=== PATIENT | male | born 1985 | race African-American/Black ===

== ENCOUNTER 2019-03-01 10:22 | Emergency (ER) | payer OTHER ==
[~2019-03-01] VITALS: Ht 185.4 cm; Wt 95.2 kg
[~2019-03-01 10:22] MED LIST: Crutch1 EACH MISC; Norco 5-325 Ta1 EACH PO
== END 2019-03-01 11:28 | disposition home or self-care (01) ==
LOC: ER 10:22
DX: R04.0 Epistaxis (principal)
CPT/HCPCS: 99283

== ENCOUNTER 2019-03-01 17:54 | Emergency (ER) | payer SELFPAY ==
[~2019-03-01] VITALS: Ht 185.4 cm; Wt 90.7 kg
== END 2019-03-01 18:21 | disposition left against medical advice (07) ==
LOC: ER 17:54
DX: Z53.21 Procedure and treatment not carried out due to patient leaving prior to being seen by health care provider (principal)

== ENCOUNTER 2020-05-15 00:16 | Emergency (ER) | payer OTHER ==
[~2020-05-15] VITALS: Ht 185.4 cm; Wt 95.2 kg
== END 2020-05-15 01:12 | disposition home or self-care (01) ==
LOC: ER 00:16
DX: S61.412A Laceration without foreign body of left hand, initial encounter (principal); F17.220 Nicotine dependence, chewing tobacco, uncomplicated; W45.8XXA Other foreign body or object entering through skin, initial encounter
CPT/HCPCS: 12001; 99282

== ENCOUNTER 2024-07-23 09:07 | Emergency (ER) | payer OTHER ==
[~2024-07-23] VITALS: Ht 185.4 cm; Wt 90.7 kg
[2024-07-23 10:07] VITALS: BP 149/78
[2024-07-23 11:27] LABS: Source, Urine Clean Catch
[2024-07-23 11:37] LABS: Bilirubin, Urine Neg (Neg); Blood, Urine 4+ (Neg); Glucose Qualitative, Urine Neg (Neg); Ketones, Urine Neg (Neg); Leukocyte Esterase, Urine 3+ (Neg); Nitrite, Urine Pos (Neg); Protein, Urine 2+ (Neg); Urobilinogen, Urine NORM (Normal); pH, Urine 6.5 (5.0-8.0)
[2024-07-23 12:01] LABS: Appearance, Urine Hazy (Clear); Color, Urine Yellow (P-Yellow)
[2024-07-23 12:02] LABS: Bacteria Many /hpf; Squamous Epithelial Cells Few /hpf (Few); White Blood Cells, Urine 50-100 /hpf (0-5)
[2024-07-23] MEDS ORDERED: CefTRIAXone 1000 MG Vial IM ONE (13:00)
[2024-07-23] MEDS ORDERED: Doxycycline Hyclate 100 MG TAB PO ONE (13:05)
[2024-07-23] MEDS ORDERED: HYDR1TAB94 PO (13:05)
[2024-07-23] MEDS ORDERED: LEVFLO500 PO (13:05)
== END 2024-07-23 13:22 | disposition home or self-care (01) ==
LOC: ER 09:07
PROVIDERS: Physician Assistant
DX: N45.1 Epididymitis (principal); F17.220 Nicotine dependence, chewing tobacco, uncomplicated
CPT/HCPCS: 76870; 81001; A9270; J0696